=== PATIENT | male | born 1995 | race Caucasian/White ===

== ENCOUNTER → 2024-06-15 | Outpatient (CLI) | payer OTHER | LOC: M RAD 07:30 | PROVIDERS: ATTEND Physician Assistant | DX: M25.532 Pain in left wrist (principal); M67.432 Ganglion, left wrist; M25.332 Other instability, left wrist; M85.642 Other cyst of bone, left hand ==

== ENCOUNTER → 2024-09-13 | Outpatient (CLI) | payer OTHER | LOC: M SOG 11:12 | PROVIDERS: ATTEND Orthopaedic Surgery Hand Surgery | DX: Z53.9 Procedure and treatment not carried out, unspecified reason (principal) ==